=== PATIENT | male | born 1960 | race Caucasian/White ===

== ENCOUNTER → 2018-10-31 | Outpatient (CLI) | payer OTHER, SELFPAY ==
[2014-04-29 17:56] VITALS: BMI 25.9
--- NOTE | 2018-10-31 09:30 | RAD_ITS ---
STUDY: X-RAY - CERVICAL SPINE REASON FOR EXAM: Male, 58 years old. Left shoulder and arm pain TECHNIQUE: 4 view(s) of the cervical spine were obtained. COMPARISON: None FINDINGS: Normal anterior atlantoaxial articulation. Normal odontoid process. Normal cervical lordosis. Normal vertebral bodies and endplates. Normal disc space heights. Normal visualized intervertebral neuroforamina. The soft tissue structures are unremarkable. RAD/Cerv Spine 4 or 5 Views IMPRESSION: Normal x-ray examination of the visualized cervical spine. Electronically Signed: Clayton Sanchez MD at 9:48 EDT , Service support ,
== END | disposition home or self-care (01) ==
LOC: RAD 09:26
PROVIDERS: Family Provider Family Medicine; PCP Family Medicine; Referring Provider Family Medicine; Visit Provider Family Medicine
DX: R20.2 Paresthesia of skin (principal)
CPT/HCPCS: 72050

== ENCOUNTER → 2018-11-24 | Outpatient (CLI) | payer OTHER, SELFPAY ==
[2014-04-29 17:56] VITALS: BMI 25.9
--- NOTE | 2018-11-24 16:18 | CT_ITS ---
STUDY: LOW DOSE CT LUNG CANCER SCREENING REASON FOR EXAM: Male, 58 years old. Current smoker. 43 year pack history. COPD. RADIATION DOSAGE (If Supplied By Facility): CTDIvol = ( 3.02 ) mGy, DLP = ( 117.39 ) mGycm TECHNIQUE: No contrast was administered. Low dose technique was utilized (average mAS-38 and kVp 120). 1.25 mm axial source images with a slice interval of 1.25-mm were reconstructed in lung windows. 2.5 mm axial source images with a slice interval of 2.5-mm were reconstructed in lung windows. 5.0 mm axial source images with a slice interval of 5.0-mm were reconstructed in soft tissue windows. Nodule measured using lung windows on PACS and/or independent workstation with automated measurement of minimum and maximum diameter. Nodule measurement reported as average diameter rounded to the nearest whole number. Growth is defined as an increase ins size of greater than 1.5 mm. COMPARISON: Chest, April 29, 2014 NODULES: Nodule #: 1 Density: Solid Lung location: Left upper lobe: Pleural-based Location in series: Series Number: 2 Image: 83 Size - D1 x D2 mm: 5 x 5 mm: 5 mm average diameter Margin: Irregular Shape: Rounded Calcification: Yes Fat: No Temporal comparison: No Nodule #: 2 Density: Solid Lung location: Right lower lobe: Pleural-based Location in series: Series Number: 2 Image: 93 Size - D1 x D2 mm: 2 x 2 mm: 2 mm average diameter Margin: Smooth Shape: Rounded Calcification: Yes Fat: No Temporal comparison: None Nodule #: 3 Density: Solid Lung location: Right upper lobe: 4.4 cm from pleura Location in series: Series Number: 2 Image: 98 Size - D1 x D2 mm: 2 x 2 mm: 2 mm average diameter Margin: Smooth Shape: Rounded Calcification: Yes Fat: No Temporal comparison: None Nodule #: 4 Density: Solid Lung location: Right upper lobe: 3.6 cm from pleura Location in series: Series Number: 2 Image: 104 Size - D1 x D2 mm: 2 x 1 mm: 2 mm average diameter Margin: Smooth Shape: Oval Calcification: Yes Fat: No Temporal comparison: None Nodule #: 5 Density: Cephalic Lung location: Right upper lobe: 1.9 cm from pleura Location in series: Series Number: 2 Image: 109 Size - D1 x D2 mm: 2 x 1 mm: 2 mm average diameter Margin: Smooth Shape: Oval Calcification: Yes Fat: No Temporal comparison: None Nodule #: 6 Density: Solid Lung location: Right upper lobe: 0.6 cm from pleura Location in series: Series Number: 2 Image: 113 Size - D1 x D2 mm: 2 x 2 mm: 2 mm average diameter Margin: Smooth Shape: Rounded Calcification: No Fat: No Temporal comparison: Not Nodule #: 7 Density: Central Lung location: Right middle lobe: 2.0 cm from pleura Location in series: Series Number: 2 Image: 128 Size - D1 x D2 mm: 6 x 4 mm: 5 mm average diameter Margin: Smooth Shape: Oval Calcification: No Fat: No Temporal comparison: None Nodule #: 8 Density: Solid Lung location: Right lower lobe: Along the oblique fissure Location in series: Series Number: 2 Image: 138 Size - D1 x D2 mm: 2 x 1 mm: 2 mm average diameter Margin: Smooth Shape: Oval Calcification: Yes Fat: No Temporal comparison: None Nodule #: 9 Density: Solid Lung location: Right lower lobe: Along the oblique fissure Location in series: Series Number: 2 Image: 139 Size - D1 x D2 mm: 3 x 2 mm: 3 mm average diameter Margin: Smooth Shape: Oval Calcification: Yes Fat: No Temporal comparison: None Nodule #: 10 Density: Solid Lung location: Left lower lobe: 0.6 cm from pleura Location in series: Series Number: 2 Image: 166 Size - D1 x D2 mm: 6 x 5 mm: 6 mm average diameter Margin: Spiculated Shape: Round Calcification: No Fat: No Temporal comparison: None Total lung nodules (excluding granulomas): 3 Emphysema: Yes Endobronchial lesion: No Aorta: Normal Coronary arteries: Normal Heart: Normal Pulmonary artery: Normal Mediastinal nodes: There are small calcified hilar lymph nodes. Other chest and abdominal findings: There are degenerative changes of the thoracic spine. CT/Low Dose CT Lung Screening IMPRESSION: 1. Old granulomatous disease. 2. Emphysema. 3. Noncalcified nodules as above. Lung-RADS category 2 - Continue annual screening with LDCT in 12 months. IMPORTANT NOTES FOR USE: ACR Lung-RADS Version 1.0 Assessment Categories Release Date: June 21, 2013 Category: Coded 0-4 bases on nodule(s) with highest degree of suspicion. Negative screen is defined as categories 1 and 2; a positive screen is defined as categories 3 and 4. Category 3 and 4A nodules that are unchanged on interval CT should be coded as category 2, and individuals returned to screening in 12 months. Category 4X: Category 3 or 4 nodules with additional imaging findings that increase the suspicion of lung cancer, such as spiculation, GGN that doubles in size in 1 year, enlarged lymph notes, etc. Category Modifiers: S (significant finding unrelated to lung cancer) and C (prior history of treated lung cancer) may be added to the 0-4 Lung-RADS Electronically Signed: Nilesh Cullen DO at 18:35 EDT Tel [phone], Service support ,
== END | disposition home or self-care (01) ==
LOC: CT 16:17
PROVIDERS: Family Provider Family Medicine; PCP Family Medicine; Referring Provider Nurse Practitioner Family; Visit Provider Nurse Practitioner Family
DX: F17.209 Nicotine dependence, unspecified, with unspecified nicotine-induced disorders (principal); Z12.2 Encounter for screening for malignant neoplasm of respiratory organs
CPT/HCPCS: G0297

== ENCOUNTER → 2018-12-09 | Outpatient (CLI) | payer OTHER, SELFPAY ==
[2014-04-29 17:56] VITALS: BMI 25.9
--- NOTE | 2018-12-09 10:35 | NEURO ---
NCS and/or EMG Patient Report Ordering Doctor: Martinez Jo DATE OF SERVICE: 12/09/18 This is a left upper extremity EMG and nerve conduction study performed on this 58-year-old male with a history of remittent paresthesias primarily in his shoulder. He says his hand is unaffected. Symptoms became worse 2 weeks ago but may have improved. Left upper extremity sensory motor nerve conduction studies performed. The median motor and sensory distal latencies are prolonged. The ulnar motor and sensory and radial sensory responses are normal. The ulnar F-wave latency is mildly prolonged compared to the median F wave latency. Left upper extremity needle electromyography was performed. Muscles evaluate included the first dorsal osseous, abductor pollicis brevis, brachial radialis, biceps, triceps and deltoid muscles. All muscles demonstrated normal insertional activity with absence of pathologic spontaneous activity, normal motor unit recruitment pattern and amplitude was recorded. 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 There does not appear to be evidence for radiculopathy. Symptoms have only been present however for 2 weeks, if symptoms worsen or do not resolve repeat electrophysiologic study can be considered after 4 to 6 weeks of symptoms. Dictated using [employer] software, not proofread
== END | disposition home or self-care (01) ==
LOC: PSN 07:23
PROVIDERS: Family Provider Family Medicine; PCP Family Medicine; Referring Provider Family Medicine; Visit Provider Family Medicine
DX: R20.2 Paresthesia of skin (principal)
CPT/HCPCS: 95886; 95910

== ENCOUNTER → 2019-03-02 16:04 | Outpatient (CLI) | payer OTHER, SELFPAY ==
[2014-04-29 17:56] VITALS: BMI 25.9
--- NOTE | 2019-03-02 16:06 | CT_ITS ---
STUDY: LOW DOSE CT LUNG CANCER SCREENING REASON FOR EXAM: Male, 59 years old. Tobacco use, currently smokes 1 pack/day x 40yrs, 170lbs. *Concern for changes in nodule #10 (on prior CT 11/24/18) borderline* RADIATION DOSAGE (If Supplied By Facility): CTDIvol = ( 3.02 ) mGy, DLP = ( 122.67 ) mGycm TECHNIQUE: No contrast was administered. Low dose technique was utilized (average mAS-38 and kVp 120). 1.25 mm axial source images with a slice interval of 1.25-mm were reconstructed in lung windows. 2.5 mm axial source images with a slice interval of 2.5-mm were reconstructed in lung windows. 5.0 mm axial source images with a slice interval of 5.0-mm were reconstructed in soft tissue windows. Nodule measured using lung windows on PACS and/or independent workstation with automated measurement of minimum and maximum diameter. Nodule measurement reported as average diameter rounded to the nearest whole number. Growth is defined as an increase ins size of greater than 1.5 mm. COMPARISON: Comparison is made with prior examination dated November 24, 2018. NODULES: The previously seen multiple nodular densities in both lungs are unchanged. Specifically the nodular density in the left lower lobe which was labeled as #10 is unchanged. Emphysema: Mild degree of emphysematous changes. Bullous formation in the left lung. Focal scarring is seen in the medial aspect of the right upper lobe with focal areas of bronchiectasis. This is unchanged. Endobronchial lesion: No Aorta: Unremarkable. Coronary arteries: Unremarkable. Mediastinal nodes: Calcified hilar lymph nodes. Other chest and abdominal findings: Degenerative changes of the thoracic spine. CT/Low Dose CT Lung Screening IMPRESSION: Lung-RADS category 3 - Continue screening with LDCT in 6 months. IMPORTANT NOTES FOR USE: ACR Lung-RADS Version 1.0 Assessment Categories Release Date: June 21, 2013 Category: Coded 0-4 bases on nodule(s) with highest degree of suspicion. Negative screen is defined as categories 1 and 2; a positive screen is defined as categories 3 and 4. Category 3 and 4A nodules that are unchanged on interval CT should be coded as category 2, and individuals returned to screening in 12 months. Category 4X: Category 3 or 4 nodules with additional imaging findings that increase the suspicion of lung cancer, such as spiculation, GGN that doubles in size in 1 year, enlarged lymph notes, etc. Category Modifiers: S (significant finding unrelated to lung cancer) and C (prior history of treated lung cancer) may be added to the 0-4 Lung-RADS Electronically Signed: London Lopez, at 9:43 EST , Service support ,
== END ==
PROVIDERS: Family Provider Family Medicine; PCP Family Medicine; Referring Provider Nurse Practitioner Family; Visit Provider Nurse Practitioner Family
DX: Z12.2 Encounter for screening for malignant neoplasm of respiratory organs (principal); F17.209 Nicotine dependence, unspecified, with unspecified nicotine-induced disorders; R91.8 Other nonspecific abnormal finding of lung field
CPT/HCPCS: G0297

== ENCOUNTER → 2020-05-23 16:03 | Outpatient (CLI) | payer OTHER, SELFPAY ==
[2020-05-23 15:45] VITALS: BMI 25.0
--- NOTE | 2020-05-23 16:05 | CT_ITS ---
STUDY: LOW DOSE CT LUNG CANCER SCREENING REASON FOR EXAM: Male, 60 years old. Lung cancer screening -- 60 pack yr hx; current smoker; asymptomatic RADIATION DOSAGE (If Supplied By Facility): CTDIvol = ( 2.01 ) mGy, DLP = ( 75.75 ) mGycm TECHNIQUE: No contrast was administered. Low dose technique was utilized (average mAS-38 and kVp 120). 1.25 mm axial source images with a slice interval of 1.25-mm were reconstructed in lung windows. 2.5 mm axial source images with a slice interval of 2.5-mm were reconstructed in lung windows. 5.0 mm axial source images with a slice interval of 5.0-mm were reconstructed in soft tissue windows. Nodule measured using lung windows on PACS and/or independent workstation with automated measurement of minimum and maximum diameter. Nodule measurement reported as average diameter rounded to the nearest whole number. Growth is defined as an increase ins size of greater than 1.5 mm. COMPARISON: Comparison is made with prior study dated 03/02/2019. NODULES: Stable appearance of the multiple tiny scattered nodules in both lungs. Emphysema: Stable focal area of groundglass appearance in the anterior aspect of the right upper lobe. Endobronchial lesion: None Aorta: Unremarkable Coronary arteries: Unremarkable CT/Low Dose CT Lung Screening IMPRESSION: Lung-RADS category 2 - Continue annual screening with LDCT in 12 months. IMPORTANT NOTES FOR USE: ACR Lung-RADS Version 1.1 Assessment Categories Release Date: 2018 Category: Coded 0-4 bases on nodule(s) with highest degree of suspicion. Negative screen is defined as categories 1 and 2; a positive screen is defined as categories 3 and 4. Category 3 and 4A nodules that are unchanged on interval CT should be coded as category 2, and individuals returned to screening in 12 months. Category 4X: Category 3 or 4 nodules with additional imaging findings that increase the suspicion of lung cancer, such as spiculation, GGN that doubles in size in 1 year, enlarged lymph notes, etc. Category Modifiers: S (significant finding unrelated to lung cancer) Electronically Signed: London Lopez MD at 11:02 EDT , Service support ,
== END ==
PROVIDERS: PCP Family Medicine; Referring Provider Nurse Practitioner Family; Visit Provider Nurse Practitioner Family
DX: F17.209 Nicotine dependence, unspecified, with unspecified nicotine-induced disorders (principal); Z12.2 Encounter for screening for malignant neoplasm of respiratory organs
CPT/HCPCS: 71271

== ENCOUNTER → 2024-10-29 | Outpatient (CLI) | payer OTHER, SELFPAY ==
--- OUTSIDE RECORDS SUMMARY | 2024-10-29 11:19 | XMS RPT_ITS | CCD ---
Author Organization [facility] Results Test Name Value Interpretation Reference Range Facil ity Low Dose CT Lung Screeningon 05-23-[address] Lung Screening [facility] Imaging Services [address] [place] [address] Lung Screening MR#: [id number] Acct: [id number] Name: EDELMIRA RUIZ Rep #: [id number] : 1960 M 60 From: London herrera MD PCP: Dr. 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 Lung cancer screening -- 60 pack yr hx; current smoker; asymptomatic RADIATION DOSAGE (If Supplied By Facility): CTDIvol = ( 2.01 ) mGy, DLP = ( 75.75 ) mGycm TECHNIQUE: No contrast was administered. Low dose technique was utilized (average mAS-38 and kVp 120). 1.25 mm axial source images with a slice interval of 1.25-mm were reconstructed in lung windows. 2.5 mm axial source images with a slice interval of 2.5-mm were reconstructed in lung windows. 5.0 mm axial source images with a slice interval of 5.0-mm were reconstructed in soft tissue windows. Nodule measured using lung windows on PACS and/or independent workstation with automated measurement of minimum and maximum diameter. Nodule measurement reported as average diameter rounded to the nearest whole number. Growth is defined as an increase ins size of greater than 1.5 mm. COMPARISON: Comparison is made with prior study dated 03/02/2019. NODULES: Stable appearance of the multiple tiny scattered nodules in both lungs. Emphysema: Stable focal area of groundglass appearance in the anterior aspect of the right upper lobe. Endobronchial lesion: None Aorta: Unremarkable Coronary arteries: Unremarkable CT/Low Dose CT Lung Screening IMPRESSION: Lung-RADS category 2 - Continue annual screening with LDCT in 12 months. IMPORTANT NOTES FOR USE: ACR Lung-RADS Version 1.1 Assessment Categories Release Date: 2018 Category: Coded 0-4 bases on nodule(s) with highest degree of suspicion. Negative screen is defined as categories 1 and 2; a positive screen is defined as categories 3 and 4. Category 3 and 4A nodules that are unchanged on interval CT should be coded as category 2, and individuals returned to screening in 12 months. Category 4X: Category 3 or 4 nodules with additional imaging findings that increase the suspicion of lung cancer, such as spiculation, GGN that doubles in size in 1 year, enlarged lymph notes, etc. Category Modifiers: S (significant finding unrelated to lung cancer) Electronically Signed: London Lopez MD at 11:02 EDT , Service support , CC: MT Villalpando; Dr. Martinez Jo MD Building Service Worker: Signed Normal [facility] Oncology Visit Reporton 04-26 Oncology Visit Report [facility] [address] [place] [id number] OFFICE VISIT Date of Service: 05/23/20 1542 MR#: [id number] Acct: [id number] Name: EDELMIRA RUIZ Rep #: [id number] : 1960 From: Jennifer Barnett Age/Sex: 60/M [place] [facility] [place] Signed HPI HPI Reviewed eligibility criteria: 60 year old M with a 60 pack year smoking history (1.5 ppd x 40 years) Smoking Status: Current every day smoker (1.5 ppd ) Patient is exhibiting no signs or symptoms of lung cancer at this time and verbalizes they would be willing to pursue treatment with curative intent if lung cancer is discovered. Decision Making Engaged in shared decision making visit utilizing a visual aid. Discussed the risks and benefits of lung cancer screening including the total radiation exposure, false positive rate, over diagnosis and potential need for follow-up diagnostic testing all associated withlow-dose chest CT. Comorbidities Hypertension, COPD ROS Const Denies anorexia, Denies fatigue, Denies headache(s), Denies poor appetite, Denies weight loss ENT Denies headache(s) Card Denies chest pain, Denies shortness of breath, Denies rapid, pounding, or irregular heartbeat Resp Denies cough, Denies shortness of breath, Denies coughing up blood, Denies wheezing GI Reports system reviewed and no additional complaints, except as docu Reports system reviewed and no additional complaints, except as docu Musc Reports system reviewed and no additional complaints, except as docu Skin/Breast Reports system reviewed and no additional complaints, except as docu Neuro Yes system reviewed and no additional complaints, except as docu, No headache(s) Psych Reports system reviewed and no additional complaints, except as docu Endo Reports system reviewed and no additional complaints, except as docu, Denies fatigue, Denies rapid, pounding, or irregular heartbeat Magdaleno/Lymph Reports system reviewed and no additional complaints, except as docu Aller/Immun Denies wheezing Exam Const General: healthy appearing, well developed, not in acute distress Orientation: alert, awake, oriented x3 HENMT Head: normocephalic, atraumatic Neck Neck: trachea midline, supple, no lymphadenopathy noted Resp Effort Inspection: normal respiratory effort, symmetric chest movement Auscultation: Bilateral: Diminished Lung Sounds Cardio Rate: regular rate Rhythm: regular rhythm Heart Sounds: S1 normal, S2 normal, no murmurs Extrem General: clubbing Psych Mood: euthymic mood Affect: normal affect Speech and Movement: speech and movement normal Attitude: cooperative Results Results 05/23/20 LDCT chest: NODULES: Stable appearance of the multiple tiny scattered nodules in both lungs. Emphysema: Stable focal area of groundglass appearance in the anterior aspect of the right upper lobe. Endobronchial lesion: None Aorta: Unremarkable Coronary arteries: Unremarkable IMPRESSION: Lung-RADS category 2 - Continue annual screening with LDCT in 12 months. Intake Vital Signs 03/30/21 Height 5 ft 10 in 05/23/20 Weight: 174 lb 05/23/20 BMI 25.0 05/23/20 BP 171/85 H 05/23/20 Blood Pressure Location Lt brachial 05/23/20 Position Sitting 05/23/20 Respiration 16 05/23/20 Pulse 69 05/23/20 Pulse Source Monitor 05/23/20 Temp 99.2 F H 05/23/20 Temp Source Temporal 05/23/20 Pulse Oximetry (%) 97 05/23/20 Oxygen Delivery Method room air Intake Visit Reasons: Lung Cancer Screening Chief Complaint: Lung cancer screening Allergies venom-honey bee Allergy (Intermediate, Verified 05/23/20 15:43) Swelling Medications No Known/Unobtainable [No Known Home Medications] 04/29/14 [History Confirmed 05/23/20] PFSH Family History (Updated 05/23/20 @ 15:44 by Jessica Dong) Mother CAD (coronary artery disease) Father Diabetes Brother Kidney disease Grandfather Colon cancer Social History (Updated 05/24/20 @ 14:51 by Jennifer Villalpando SUPPLY CHAIN DESIGN MANAGER, 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 Encounter for screening for malignant neoplasm of lung Z12.2 Plan 1. Per LUNG RADS category 2 (previous category 3 reports nodules have been stable for > 3 months) a LDCT scan is recommended in 12 months Patient is made aware images are subject to multidisciplinary review and if alternate recommendations for screening are advised, he will be contacted via phone. 2. Other findings: Emphysema, Stable focal area of groundglass appearance in the anterior aspect of the right upper lobe. Advised routine f (more content not included)... Normal [facility] Summary Purpose Family History No Family History Records Found Advance Directives No Advanced Directives Records Found Additional Source Comments (unrecognized sect ion and content) No Status Records Found INFORMATION SOURCE (unrecogn ized section and content) DATE CREATED AUTHOR 04/07/2021 [facility] FOR RECORDS PERTAINING TO PATIENTS WHO ARE OR HAVE BEEN ENROLLED IN A CHEMICAL DEPENDENCY/SUBSTANCEABUSE PROGRAM, SOME INFORMATION MAY BE OMITTED. This clinical summary was aggregated from multiple sources. Caution should be exercised in using it in the provision of clinical care. This summary normalizes information from multiple sources, and as a consequence, information in this document may materially change the coding, format and clinical context of patient data. In addition, data may be omitted in some cases. CLINICAL DECISIONS SHOULD BE BASED ON THE PRIMARY CLINICAL RECORDS. [facility]. provides no warranty or guarantee of the accuracy or completeness of information in this document.
[2024-10-29 12:56] LABS: Hematocrit 47.3 % (40-54); Hemoglobin 16.0 g/dL (13.0-16.5); Mean Corp Hgb Conc 33.8 g/dL (32-36); Mean Corpuscular Volume 95.9 fL (80-94); Mean Platelet Vol. 9.5 fl (6.2-12.0); Platelet Count 343 K/mm3 (150-450); RBC Distribution Width CV 13.2 % (11.6-14.6); RBC Distribution Width SD 47.2 fl (35.1-43.9); Red Blood Count 4.93 M/mm3 (4.6-6.2); White Blood Count 8.7 K/mm3 (4.4-11.0)
[2024-10-29 13:38] LABS: AST(SGOT) 23 U/L (<=37); Alanine Aminotransfer ALT/SGPT 27 U/L (<=46); Albumin, Serum 4.4 g/dL (3.4-4.8); Alkaline Phosphatase 64 U/L (40-129); Anion Gap 13 (5-15); BUN 26 mg/dL (4-19); BUN/Creat Ratio 27.9 RATIO (10-20); Calcium,Total 9.4 mg/dL (7.6-11.0); Carbon Dioxide 24.5 mmol/L (21.0-32.0); Chloride 98 mmol/L (98-108); Cholesterol 203 mg/dL (<=200); Globulin 3.5 g/dL (2.2-4.2); Glucose 124 mg/dL (70-99); Low Density Lipoprotein Calc. 110 mg/dL; Potassium 4.6 mmol/L (3.3-5.1); Triglycerides 42 mg/dL; Very Low Density Lipoprotein 8 mg/dL (5-40); cholesterol:hdl ratio screen 2.41
[2024-10-29 14:07] LABS: PSA,Total- Diagnostic 0.61 ng/mL (0.00-4.00)
== END | disposition home or self-care (01) ==
LOC: MFPLAB 09:28
PROVIDERS: PCP Family Medicine; Visit Provider Family Medicine
DX: I16.0 Hypertensive urgency (principal); Z13.220 Encounter for screening for lipoid disorders; Z13.1 Encounter for screening for diabetes mellitus; Z12.5 Encounter for screening for malignant neoplasm of prostate
CPT/HCPCS: 36415; 80053; 80061; 84153; 84443; 85027